=== PATIENT | female | born 1985 | race Caucasian/White ===

== ENCOUNTER 2018-02-28 07:43 | Outpatient (CLI) | payer MEDICAID, SELFPAY ==
--- NOTE | 2018-02-28 08:25 | DI.US_ITS ---
SYMPTOM/DIAGNOSIS: THYROID NODULE, E04.1,FAMILY H/O THYROID NODULES THYROID ULTRASOUND: Both lobes of the thyroid show normal size and echogenicity. There is a 7 by 5 mm. simple appearing cyst at the medial aspect of the lower pole of the right lobe. No suspicious masses are seen. IMPRESSION: Small colloid cyst. No suspicious nodules are identified.
== END 2018-02-28 08:03 ==
PROVIDERS: PCP Nurse Practitioner; Visit Provider Nurse Practitioner
DX: E04.1 Nontoxic single thyroid nodule (principal); Z83.49 Family history of other endocrine, nutritional and metabolic diseases
CPT/HCPCS: 76536

== ENCOUNTER 2018-04-11 14:47 | Outpatient (REF) | payer MEDICAID, SELFPAY | END 2018-04-11 15:07 | LOC: LBN 14:47 | PROVIDERS: PCP Nurse Practitioner; Visit Provider Nurse Practitioner Gerontology | DX: R31.29 Other microscopic hematuria (principal) | CPT/HCPCS: 87086 ==

== ENCOUNTER 2018-06-18 16:17 | Outpatient (CLI) | payer MEDICAID, SELFPAY ==
--- NOTE | 2018-06-18 15:42 | DI.RAD_ITS ---
SYMPTOMS/DIAGNOSIS: COCCYX PAIN, M53.3, S/P FALL 1 WEEK AGO SACRUM AND COCCYX: Three views were obtained. There are mild degenerative changes of the SI joints. Visualization of the distal sacrum is suboptimal, but there is some question of decreased bone density or lytic lesion of the sacrum on the right. No other significant bony abnormality seen. CONCLUSION: Questioned sacral bone loss or deformity. Lytic lesion not excluded. Correlation with CT of the sacrum recommended.
== END 2018-06-18 16:37 ==
PROVIDERS: PCP Nurse Practitioner; Visit Provider Specialist/Technologist Athletic Trainer
DX: M53.3 Sacrococcygeal disorders, not elsewhere classified (principal); M43.8X8 Other specified deforming dorsopathies, sacral and sacrococcygeal region
CPT/HCPCS: 72220

== ENCOUNTER 2018-07-19 01:15 | Outpatient (CLI) | payer MEDICAID, SELFPAY ==
--- NOTE | 2018-07-19 14:23 | DI.RAD_ITS ---
SYMPTOMS/DIAGNOSIS: LYTIC BONE LESIONS ON X-RAY, R93.7, COCCYX PAIN, M53.3 CT SCAN OF THE PELVIS: Multiple contiguous axial images of the pelvis were performed. Comparison x-ray is 06/18/18. The bones are intact. No acute fracture or dislocation is seen. No lytic or sclerotic lesion is seen in the bones. The sacroiliac joints are well maintained. The soft tissues are grossly unremarkable. There is a large amount of stool seen in the visualized colon, particularly in the rectal vault. IMPRESSION: 1. Normal osseous structures. No evidence of a lytic osseous lesion. 2. Mild constipation.
== END 2018-07-19 01:35 ==
PROVIDERS: PCP Nurse Practitioner Family; Visit Provider Nurse Practitioner Family
DX: M53.3 Sacrococcygeal disorders, not elsewhere classified (principal); K59.00 Constipation, unspecified
CPT/HCPCS: 72192

== ENCOUNTER 2019-06-24 11:05 | Outpatient (REF) | payer MEDICAID, SELFPAY ==
[2019-06-24 21:15] LABS: Abs Immature Grans 0.01 k/cumm (0.0-0.09); Absolute Basophil Count 0.02 k/cumm (0.0-0.2); Absolute Eosinophil Count 0.27 k/cumm (0.0-0.7); Absolute Lymphocyte Count 2.14 k/cumm (1.2-3.4); Absolute Monocyte Count 0.59 k/cumm (0.11-0.7); Absolute Neutrophil Count 4.54 k/cumm (1.2-6.7); Basophils % 0.3; Eosinophils % 3.6; HCT 39.6 % (36.0-46.0); HGB 13.3 g/dL (12.0-15.5); Immature Grans % 0.1 %; Lymphocytes % 28.3; Mean Corp. HGB Concentration 33.6 g/dL (32.0-36.0); Mean Corpuscular Hemoglobin 28.1 pg (27.0-33.0); Mean Corpuscular Volume 83.7 fL (80-95); Monocytes % 7.8; Neutrophils % 59.9; Platelet Count 364 x1000/uL (130-400); RBC 4.73 m/cumm (4.00-5.20); RBC Distribution Width 12.9 % (11.7-14.6); White Blood Cell Count 7.57 k/cumm (4.4-10.8)
[2019-06-24 21:19] LABS: Lithium 0.38 mmol/L (0.60-1.20)
[2019-06-24 21:51] LABS: ALT 35 U/L (14-59); AST 22 U/L (15-37); Albumin 4.1 g/dL (3.4-5.0); Alkaline Phosphatase 80 U/L (46-116); Anion Gap 5.9 mmol/L (3-11); BUN 13 mg/dL (7-18); Bilirubin, Total 0.4 mg/dL (0.2-1.0); CO2 32.1 mmol/L (21.0-32.0); CREATININE 0.93 mg/dL (0.55-1.02); Calcium 8.9 mg/dL (8.5-10.1); Chloride 101 mmol/L (98-107); Glucose 80 mg/dL (74-106); Potassium 4.2 mmol/L (3.5-5.1); Sodium 139 mmol/L (136-145); TSH (W/Ref FT4) 3.29 uIU/mL (0.36-3.74); Total Protein 7.3 g/dL (6.4-8.2); Vitamin B12 424 pg/mL (193-986)
== END 2019-06-24 11:25 ==
LOC: NCHCN 11:05
PROVIDERS: PCP Nurse Practitioner Family; Visit Provider Nurse Practitioner Family
DX: F31.32 Bipolar disorder, current episode depressed, moderate (principal); F22 Delusional disorders; R45.4 Irritability and anger; R45.851 Suicidal ideations; Z51.81 Encounter for therapeutic drug level monitoring
CPT/HCPCS: 80053; 80178; 82607; 84443; 85025

== ENCOUNTER 2019-07-17 17:45 | Outpatient (REF) | payer OTHER, SELFPAY ==
[2019-07-17 21:38] LABS: Lithium 0.54 mmol/L (0.60-1.20)
== END 2019-07-17 18:05 ==
LOC: NCHCN 17:45
PROVIDERS: PCP Nurse Practitioner Family; Visit Provider Nurse Practitioner Family
DX: F31.32 Bipolar disorder, current episode depressed, moderate (principal); Z51.81 Encounter for therapeutic drug level monitoring
CPT/HCPCS: 80178

== ENCOUNTER 2020-12-22 11:17 | Outpatient (REF) | payer SELFPAY ==
[2020-12-22 14:48] LABS: ESR 33 mm/hr (0-20)
[2020-12-22 21:49] LABS: Rheumatoid Factor <8.6 IU/mL (<12.0)
[2020-12-23 00:19] LABS: C-Reactive Protein 0.54 mg/dL (0.0-0.3)
[2020-12-23 14:53] LABS: ANA Interpretation Negative (Negative)
[2020-12-24 04:12] LABS: Vitamin D 25 Total 5.9 ng/mL (30-100)
== END 2020-12-22 11:18 | disposition home or self-care (01) ==
LOC: NCHCN 11:17
PROVIDERS: PCP Nurse Practitioner Family; Visit Provider Nurse Practitioner Family
DX: R53.83 Other fatigue (principal); M25.59 Pain in other specified joint; L65.9 Nonscarring hair loss, unspecified
CPT/HCPCS: 82306; 85652; 86038; 86140; 86431

== ENCOUNTER 2023-07-14 10:29 | Outpatient (REF) | payer BC, SELFPAY ==
[2023-07-14 14:28] LABS: HCT 39.9 % (36.0-46.0); HGB 13.3 g/dL (11.2-15.7); MCH 28.5 pg (27.0-33.0); MCHC 33.3 % (32.0-36.0); MCV 85 fL (80-95); MPV 10.9 fL (8.0-11.0); Platelet Count 327 10^3/uL (130-400); RBC 4.67 10^6/uL (3.93-5.22); RDW 14.2 % (11.7-14.6); WBC 10.88 10^3/uL (4.4-10.8)
[2023-07-14 14:40] LABS: Iron 84 ug/dL (50-170); Total Iron Binding Capacity 330 ug/dL (250-450); Transferrin Sat 25 % (15-50)
[2023-07-14 15:08] LABS: Hemoglobin A1C 5.9 % (<5.7)
[2023-07-14 15:10] LABS: Ferritin 43 ng/mL (8-252); TSH (W/Ref FT4) 2.61 uIU/mL (0.36-3.74); Vitamin B12 466 pg/mL (193-986); Vitamin D 25 Total 11.8 ng/mL (30-100)
== END 2023-07-14 10:30 | disposition home or self-care (01) ==
LOC: NCHCN 10:29
PROVIDERS: PCP Nurse Practitioner Family; Visit Provider Nurse Practitioner Family
DX: E03.9 Hypothyroidism, unspecified (principal); E55.9 Vitamin D deficiency, unspecified; R20.2 Paresthesia of skin; N94.6 Dysmenorrhea, unspecified; E66.9 Obesity, unspecified
CPT/HCPCS: 82306; 85027; 82607; 82728; 83036; 83540; 83550; 84443

== ENCOUNTER 2023-10-11 07:35 | Outpatient (CLI) | payer BC, SELFPAY ==
[2023-10-11 08:15] LABS: ALT 23 U/L (14-59); AST 15 U/L (15-37); Albumin 3.7 g/dL (3.4-5.0); Alkaline Phosphatase 88 U/L (46-116); BUN 8 mg/dL (7-18); Bilirubin, Total 0.45 mg/dL (0.2-1.0); CREATININE 0.7 mg/dL (0.55-1.02); Calcium 8.7 mg/dL (8.5-10.1); Chloride 103 mmol/L (98-107); Estimated GFR 112.05 (mL/min/1.73m2); Glucose 116 mg/dL (74-106); Potassium 3.8 mmol/L (3.5-5.1); Sodium 138 mmol/L (136-145); Total Protein 7.2 g/dL (6.4-8.2)
[2023-10-11 08:20] LABS: Hemoglobin A1C 5.7 % (<5.7)
== END 2023-10-11 07:36 | disposition home or self-care (01) ==
PROVIDERS: PCP Nurse Practitioner Family; Visit Provider Registered Nurse Psychiatric/Mental Health
DX: F31.9 Bipolar disorder, unspecified (principal)
CPT/HCPCS: 36415; 80053; 83036